=== PATIENT | female | born 1935 | race Caucasian/White ===

== ENCOUNTER 2018-11-21 17:05 | Emergency (ER) | payer MEDICARE, MEDICAID ==
--- NOTE | 2018-11-21 17:51 | RAD ---
AP PELVIS: 11/21/18 HISTORY: Fall with injury to pelvis. There are moderate to severe degenerative changes at the left hip. Prominent hypertrophic changes fro m the femoral head on the left with joint narrowing. No significant degenerative changes at the right hip. The bony pelvis appears intact. The sacrum is obscured by bowel content. 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 No acute fracture identified. POS: [facility]
--- NOTE | 2018-11-21 18:21 | CT ---
CT OF BRAIN PERFORMED WITHOUT CONTRAST ENHANCEMENT: 11/21/18 HISTORY: Head injury status post fall from bed at alf. There is marked ventricular and sulcal prominence. There is no signs of intracerebral hemorrhage or e xtra-axial fluid collections. Mastoid air cells and visualized sinuses are clear. Right sided scalp i njury is seen. IMPRESSION: No acute intracranial abnormalities. POS: [facility]
[2018-11-21 18:22] LABS: Bilirubin Negative (Negative); Blood, Urine Moderate (Negative); Clarity CLOUDY (Clear); Glucose, Urine (Dipstick) Negative (Negative); Leukocyte Trace (Negative); Nitrite Positive (Negative); Protein, Urine (Dipstick) Negative (Neg-Trace); Specific Gravity, Urine 1.019 (1.002-1.036); Urobilinogen 0.2 mg/dL (0.2-1.0); pH, Urine 6.5 (5.0-9.0)
[2018-11-21 18:25] LABS: Bacteria/HPF 4+ HPF (None Seen); Hyaline Casts/LPF 0-3 HYALINE CAST LPF (0-3 Hyaline); Pathc Cast-AUWi Flag 0.13 (0-2.49); RBC/HPF 0-3 HPF (0-3); Squamous Epithelial 0-3 HPF (0-3)
--- NOTE | 2018-11-21 18:26 | CT ---
CT OF CERVICAL SPINE PERFORMED WITHOUT CONTRAST ENHANCEMENT: 11/21/18 HISTORY: Neck pain status post fall in bed. COMPARISON: CT examination of 03/25/17. There is mild disc narrowing at C2-3 with minimal retrolisthesis at this level. There is anterolisthe sis of C4 on C5 and C5 on C6. Changes are related to degenerative facet changes and appears similar t o the previous exam. Disc narrowing is seen at the C5-6 and C6-7 levels. Minimal anterolisthesis of C 7 on T1 is also present. The facets do appear to be in normal alignment. There is no significant janice l stenosis and no CT evidence for fracture. The lung apices are clear. IMPRESSION: No CT evidence of fracture of the cervical spine. Marked arthritic changes present. POS: [facility]
[2018-11-21 18:37] LABS: Renal Epithelial 0-3 HPF (0-3); Transitional Epithelial 0-3 HPF (0-3)
== END 2018-11-21 19:56 ==
LOC: ERS 17:05
DX: N39.0 Urinary tract infection, site not specified (principal); G30.9 Alzheimer's disease, unspecified; F02.80 Dementia in other diseases classified elsewhere, unspecified severity, without behavioral disturbance, psychotic disturbance, mood disturbance, and anxiety; M19.90 Unspecified osteoarthritis, unspecified site; F41.9 Anxiety disorder, unspecified; J44.9 Chronic obstructive pulmonary disease, unspecified; F32.9 Major depressive disorder, single episode, unspecified; Z87.891 Personal history of nicotine dependence; Z79.899 Other long term (current) drug therapy; W06.XXXA Fall from bed, initial encounter
CPT/HCPCS: 51701; 70450; 72125; 72170; 81003; 81015; A4353

== ENCOUNTER 2018-11-27 15:23 | Inpatient (IN) | payer MEDICARE, MEDICAID ==
[2018-11-27] MEDS ORDERED: Acetaminophen 325 MG Suppository ONE ×2 (15:33→15:43)
[2018-11-27 16:12] LABS: Bilirubin Negative (Negative); Blood, Urine Small (Negative); Clarity CLEAR (Clear); Glucose, Urine (Dipstick) Negative (Negative); Leukocyte Trace (Negative); Nitrite Negative (Negative); Protein, Urine (Dipstick) 100 mg/dL (Neg-Trace); Specific Gravity, Urine 1.027 (1.002-1.036); pH, Urine 6.5 (5.0-9.0)
[2018-11-27 16:14] LABS: Bacteria/HPF 1+ HPF (None Seen); Pathc Cast-AUWi Flag 1.49 (0-2.49); RBC/HPF 0-3 HPF (0-3)
[2018-11-27 16:15] LABS: Hemoglobin 12.5 g/dL (12.0-16.0); Mean Corpuscular HGB CONC 32.7 g/dL (32.0-36.0); Mean Corpuscular Hemoglobin 31.5 pg (27.0-31.0); Mean Corpuscular Volume 96.3 fL (78.0-98.0); Mean Platelet Volume 7.6 fL (7.4-10.4); Platelet Count 242 thou/uL (130-400); RBC Distribution Width 11.7 % (11.5-14.5); Red Blood Cell (RBC) Count 3.97 mill/uL (4.20-5.40); White Blood Cell (WBC) Count 15.8 thou/uL (4.8-10.8)
--- NOTE | 2018-11-27 16:19 | CT ---
CT BRAIN NONCONTRAST: 11/27/18 HISTORY: 83-year-old female with Alzheimer's dementia who fell, striking her head. FINDINGS: There is no midline shift or any other mass effect. There is no evidence of acute intracranial hemor rhage, large cortical infarct, obstructive hydrocephalus, or extraaxial fluid collection. The calvar ium is intact. There is diffuse parenchymal volume loss. There are low attenuation areas in the whi te matter. These are nonspecific, but in a patient of this age, they are probably chronic ischemic w danay matter changes due to microvascular atherosclerosis. IMPRESSION: 1) No acute intracranial findings. 2) Severe involutional changes and moderate chronic ischemic white matter changes. 3) Small right frontal superficial scalp contusion, smaller than it was on 11/21/18. carlos manuel barton POS: [facility]
--- NOTE | 2018-11-27 16:25 | RAD ---
FEXAM:Portable chest HISTORY: Patient is status post fall. History of Alzheimer's. COMPARISON: None. FINDINGS:Heart size within normal limits there are atherosclerotic changes of the aorta. The bones ap pear demineralized. No pneumothorax. No rib fractures visualized. IMPRESSION:No active intrathoracic disease.
[2018-11-27 16:27] LABS: Hyaline Casts/LPF 4-6 HYALINE CAST LPF (0-3 Hyaline); Other Casts/LPF 4-6 COARSE GRAN LPF (0-3 Hyaline); Transitional Epithelial 0-3 HPF (0-3)
[2018-11-27 16:28] LABS: ALT (SGPT) 28 U/L (8-55); AST (SGOT) 39 U/L (5-34); Albumin 3.7 g/dL (3.4-4.8); Alkaline Phosphatase 116 U/L (40-150); Anion Gap 16 mmol/L (10-20); BUN (Urea Nitrogen) 31 mg/dL (9.8-20.1); Bilirubin, Total 0.5 mg/dL (0.2-1.2); Calc. Creatinine Clearance 0 mL/min (70-130); Calcium 9.4 mg/dL (7.8-10.44); Carbon Dioxide 24 mmol/L (23-31); Chloride 106 mmol/L (98-107); Estimated GFR-MDRD 63; Globulin 3.1 g/dL (2.4-3.5); Glucose 125 mg/dL (83-110); Potassium 4.4 mmol/L (3.5-5.1); Protein, Total 6.8 g/dL (6.0-8.3); Sodium 142 mmol/L (136-145)
[2018-11-27 16:31] LABS: Band 9 % (5-11); Lymphocytes 6 % (21-51); MDiff Complete? YES; Monocytes 1 % (0-10); Neutrophil 83 % (42-75); Platelet Morphology Comment Appears Adequate; RBC Morphology Normal
[2018-11-27] MEDS ORDERED: Piperacillin/Tazobactam 4.5 GM VIAL ONE (16:55)
--- NOTE | 2018-11-27 18:21 | PDOC.FPRHP ---
- History of Present Illness Chief Complaint: fall History of Present Illness: 83yo F with pmh of dementia and aphasia presents as transfer from [facility] and Outside ER for falls. Pt was reported to have fallen and hit her head. On eval of outside ER head CT showed no acute intracranial process (though it has sever chronic changes). However pt was found to meet sirs criteria with fever of 101 and WBC 15.8. She was given 1L IVF, Vanc, Zosyn and transferred to [place]. Pt is aphasic on exam and as documented on paperwork from [facility] and unable to provide any medical hx. All Hx gained from records review. ED Course: see hpi - Allergies/Adverse Reactions Allergies Allergy/AdvReac Type Severity Reaction Status Date / Time No Known Allergies Allergy Verified 11/27/18 23:28 - Home Medications Medication Instructions Recorded Confirmed Type Donepezil HCl [Aricept] 23 mg PO DAILY 11/27/18 11/27/18 History Loperamide HCl [Loperamide] 2 mg PO ASDIR PRN 11/27/18 11/27/18 History Melatonin 5 mg PO HS 11/27/18 11/27/18 History Meloxicam [Mobic] 7.5 mg PO DAILY 11/27/18 11/27/18 History Memantine HCl [Namenda XR] 28 mg PO DAILY 11/27/18 11/27/18 History diphenhydrAMINE [Benadryl] 25 mg PO Q6HR PRN 11/27/18 11/27/18 History - History PMHx: advanced dementia, aphasia, anxiety PSHx: unknown FHx: unknown Social: unknown - Review of Systems ROS unobtainable: due to mental status - Vital signs BP: 104/66, Pulse: 76, Resp: 18, O2 sat: 99 on Room Air, TMAX 101. Time: 11/27/2018 17:40. - Physical Exam Constitutional: other (not alert, not oriented) HEENT: EOMI, conjunctiva clear, MMM Neck: supple, trachea midline Chest: no-tender to palpation Heart: RRR, normal S1/S2 Lungs: CTAB, no respiratory distress Abdomen: soft, other (mild ttp in LUQ) Musculoskeletal: normal structure, normal tone Neurological: no focal deficit, normal sensation Skin: no rash/lesions, good turgor Heme/Lymphatic: no purpura, no petechia Psychiatric: other (unable to obtain) FMR H&P: Results - Labs Result Diagrams: 11/27/18 15:54 11/27/18 15:54 Lab results: WBC 15.8 thou/uL (4.8-10.8) H 11/27/18 15:54 Hgb 12.5 g/dL (12.0-16.0) 11/27/18 15:54 Hct 38.2 % (36.0-47.0) 11/27/18 15:54 MCV 96.3 fL (78.0-98.0) 11/27/18 15:54 Plt Count 242 thou/uL (130-400) 11/27/18 15:54 Band Neuts % (Manual) 9 % (5-11) 11/27/18 15:54 Sodium 142 mmol/L (136-145) 11/27/18 15:54 Potassium 4.4 mmol/L (3.5-5.1) 11/27/18 15:54 Chloride 106 mmol/L (98-107) 11/27/18 15:54 Carbon Dioxide 24 mmol/L (23-31) 11/27/18 15:54 BUN 31 mg/dL (9.8-20.1) H 11/27/18 15:54 Creatinine 0.86 mg/dL (0.6-1.1) 11/27/18 15:54 Glucose 125 mg/dL (83-110) H 11/27/18 15:54 Lactic Acid 2.5 mmol/L (0.5-2.2) H 11/27/18 15:54 Calcium 9.4 mg/dL (7.8-10.44) 11/27/18 15:54 Total Bilirubin 0.5 mg/dL (0.2-1.2) 11/27/18 15:54 AST 39 U/L (5-34) H 11/27/18 15:54 ALT 28 U/L (8-55) 11/27/18 15:54 Alkaline Phosphatase 116 U/L (40-150) 11/27/18 15:54 Serum Total Protein 6.8 g/dL (6.0-8.3) 11/27/18 15:54 Albumin 3.7 g/dL (3.4-4.8) 11/27/18 15:54 Urine Ketones Negative mg/dL (Negative) 11/27/18 15:40 Urine Blood Small (Negative) H 11/27/18 15:40 Urine Nitrite Negative (Negative) 11/27/18 15:40 Ur Leukocyte Esterase Trace (Negative) H 11/27/18 15:40 Urine RBC 0-3 HPF (0-3) 11/27/18 15:40 Urine WBC 7-10 HPF (0-3) H 11/27/18 15:40 Ur Squamous Epith Cells 4-6 HPF (0-3) H 11/27/18 15:40 Urine Bacteria 1+ HPF (None Seen) H 11/27/18 15:40 FMR H&P: A/P - Problem List (1) Sepsis Current Visit: Yes Status: Acute Code(s): A41.9 - SEPSIS, UNSPECIFIED ORGANISM (2) Aphasia Current Visit: Yes Status: Acute Code(s): R47.01 - APHASIA (3) Anxiety Current Visit: Yes Status: Acute Code(s): F41.9 - ANXIETY DISORDER, UNSPECIFIED - Plan Sepsis A- UA was dirty but showed trace LE. Presumably this could be the source but no obvious source at this point. Skin examination by nursing showed no open wounds. Pt is s/p 1L IVF in outside ER and stable P- Continue Vanc/Zosyn -LR 100/hr -f/u UCx/BCx -flu swab Dementia -hold home meds until diet is given after speech therapy eval aphasia -source unknown though likely dementia CODE: DNAR, spoke with next of kin over the phone. FMR H&P: Upper Level - Pertinent history Lolita Alfaro is an 83 year old female with a history of alzheimer's dementia who presents to the ED with increasing lethargy and decreasing PO intake. Pt being admitted for sepsis likely secondary to urinary tract infection. In ED: received 1L NS, Vanc, Zosyn - Pertinent findings General:Pt is somnolent but arousable. No distress Heart: regular rate and rhythm, no murmurs, rubs, or gallops. Lungs: clear to auscultation bilaterally Extremities: normal bulk and tone; no peripheral edema Skin: no rashes or lesions noted. Tmax: 102.4 WBC: 15.8 CXR: No active intrathoracic disease. Lactate: 2.5 - Plan Date/Time: 11/27/18 1821 I, Cat Giles, have evaluated this patient and agree with findings/plan as outlined by music industry intern resident. Pertinent changes/additions are listed here. Sepsis likely secondary to UTI - will admit to medical unit as an inpatient. Vitals stable. - continue broad spectrum antibiotics. - cultures pending. Will add on flu swab. - trend lactate. Regarding chronic medical problems, will restart home medications as described above. Addendum - Attending - Attending Attestation Date/Time: 11/28/18 0604 I personally evaluated the patient and discussed the management with Dr. Knapp and team. I agree with and repeated the History, Examination, Assessment and Plan documented above with any addition or exceptions noted below. Limited ROS due to baseline dementia. Suspect sepsis 2/2 UTI and will treat as such. Send flu swab, although upper respiratory symptoms do not appear to be prominent.
[2018-11-27] MEDS ORDERED: Acetaminophen 325 MG TAB PO PRN (18:28)
[2018-11-27] MEDS ORDERED: Sodium Chloride 0.9% 1,000 ML IV SCH (18:28)
[2018-11-27] MEDS ORDERED: Ondansetron PF 4 MG/2 ML Vial IVP PRN (18:28)
[2018-11-27] MEDS ORDERED: Ondansetron ODT 4 MG TAB SL PRN (18:28)
[2018-11-27 19:16] VITALS: BMI 17.0
[2018-11-27 20:13] LABS: Lactic Acid 1.5 mmol/L (0.5-2.2)
[2018-11-27] MEDS: Lactated Ringer's 1,000 ML IV SCH (21:51)
[2018-11-27] MEDS: Piperacillin/Tazobactam 3.375 GM in Sodium Chloride 0.9% 100 ML IVPB SCH (21:58)
[2018-11-27] MEDS ORDERED: Piperacillin/Tazobactam 3.375 GM in Sodium Chloride 0.9% 100 ML IVPB SCH (22:00)
[2018-11-28] MEDS: Piperacillin/Tazobactam 3.375 GM in Sodium Chloride 0.9% 100 ML IVPB SCH ×4 (03:05→21:17)
[2018-11-28 06:35] LABS: #Lymphocytes 1.1 thou/uL (1.20-3.40); #Monocytes 0.5 thou/uL (0.11-0.59); #Neutrophils 7.2 thou/uL (1.40-6.50); %Basophils 0.3 % (0.0-1.0); %Eosinophils 0.4 % (0.0-10.0); %Lymphocytes 11.9 % (21.0-51.0); %Monocytes 5.7 % (0.0-10.0); %Neutrophils 81.8 % (42.0-75.0); Hemoglobin 9.9 g/dL (12.0-16.0); Mean Corpuscular HGB CONC 32.6 g/dL (32.0-36.0); Mean Corpuscular Hemoglobin 31.8 pg (27.0-31.0); Mean Corpuscular Volume 97.3 fL (78.0-98.0); Mean Platelet Volume 7.4 fL (7.4-10.4); Platelet Count 201 thou/uL (130-400); RBC Distribution Width 11.4 % (11.5-14.5); White Blood Cell (WBC) Count 8.8 thou/uL (4.8-10.8)
[2018-11-28] MEDS: Lactated Ringer's 1,000 ML IV SCH ×2 (06:43→15:49)
[2018-11-28 06:58] LABS: Anion Gap 10 mmol/L (10-20); BUN (Urea Nitrogen) 27 mg/dL (9.8-20.1); Calc. Creatinine Clearance 38 mL/min (70-130); Calcium 8.5 mg/dL (7.8-10.44); Carbon Dioxide 24 mmol/L (23-31); Chloride 113 mmol/L (98-107); Estimated GFR-MDRD 67; Glucose 82 mg/dL (83-110); Potassium 3.8 mmol/L (3.5-5.1); Sodium 143 mmol/L (136-145)
--- NOTE | 2018-11-28 07:13 | PDOC.FM ---
- Subjective Subjective: pt sleeping comfortably in bed, responds to commands, aphasic at baseline. - Objective Vital Signs & Weight: Vital Signs (12 hours) Temp Pulse Resp BP Pulse Ox 11/28/18 05:23 98.5 F 73 18 118/71 96 11/28/18 00:00 98.2 F 82 18 119/82 96 Weight Weight 47.826 kg I&O: 11/27/18 11/28/18 11/29/18 06:59 06:59 06:59 Intake Total 900 Balance 900 Result Diagrams: 11/28/18 06:00 11/28/18 06:00 Phys Exam - Physical Examination Constitutional: NAD HEENT: moist MMs Neck: full ROM Respiratory: clear to auscultation bilateral Cardiovascular: RRR, no significant murmur Gastrointestinal: no distention Musculoskeletal: no edema Neurological: moves all 4 limbs Psychiatric: normal affect Skin: no rash Dx/Plan (1) Anxiety Code(s): F41.9 - ANXIETY DISORDER, UNSPECIFIED Status: Acute (2) Aphasia Code(s): R47.01 - APHASIA Status: Acute (3) Sepsis Code(s): A41.9 - SEPSIS, UNSPECIFIED ORGANISM Status: Acute - Plan Plan: Sepsis - UA was dirty but showed trace LE. Presumably this could be the source but no obvious source at this point. Skin examination by nursing showed no open wounds. Pt is s/p 1L IVF in outside ER and stable - Continue Vanc/Zosyn, LR 100/hr - UCx/BCx pending - flu swab pending Dementia -hold home meds until diet is given after speech therapy eval aphasia -source unknown though likely dementia CODE: DNAR, spoke with next of kin over the phone. ppx: lovenox dispo: await cx sensitivities, DC on PO abx
[2018-11-28] MEDS: Enoxaparin Sodium 40 MG/0.4 ML SYRINGE SC SCH (08:23)
--- NOTE | 2018-11-28 11:20 | PRG ---
DATE OF SERVICE: 11/28/2018 Ms. Alfaro is an 83-year-old patient with dementia, who was admitted with possible UTI. She is currently on appropriate treatment. Job ID: [id number]
--- NOTE | 2018-11-28 15:26 | PRG ---
DATE OF SERVICE: Ms. Alfaro was also noted to have a fever of 101 and high white count. She did meet SIRS criteria and therefore possible sepsis. She is on broad-spectrum antibiotics with vancomycin and Zosyn, and this will be continued. We have to determine what is the cause of her UTI. Currently, the presumptive diagnosis based on urine culture is Pseudomonas. Job ID: [id number]
[2018-11-28] MEDS ORDERED: Vancomycin HCl 750 MG in Sodium Chloride 0.9% 250 ML 250 ML IVPB SCH (18:00)
[2018-11-29] MEDS: Lactated Ringer's 1,000 ML IV SCH (03:04)
[2018-11-29] MEDS: Piperacillin/Tazobactam 3.375 GM in Sodium Chloride 0.9% 100 ML IVPB SCH (03:05)
[2018-11-29] MEDS ORDERED: Cipro 250 MG TAB PO SCH (06:00)
[2018-11-29 07:14] LABS: #Eosinphils 0.1 thou/uL (0.0-0.7); #Lymphocytes 1.4 thou/uL (1.20-3.40); #Monocytes 0.5 thou/uL (0.11-0.59); #Neutrophils 6.4 thou/uL (1.40-6.50); %Basophils 0.4 % (0.0-1.0); %Eosinophils 0.7 % (0.0-10.0); %Lymphocytes 16.6 % (21.0-51.0); %Monocytes 5.7 % (0.0-10.0); %Neutrophils 76.7 % (42.0-75.0); Hemoglobin 9.5 g/dL (12.0-16.0); Mean Corpuscular HGB CONC 32.6 g/dL (32.0-36.0); Mean Corpuscular Hemoglobin 31.4 pg (27.0-31.0); Mean Corpuscular Volume 96.3 fL (78.0-98.0); Mean Platelet Volume 7.4 fL (7.4-10.4); Platelet Count 212 thou/uL (130-400); RBC Distribution Width 11.3 % (11.5-14.5); Red Blood Cell (RBC) Count 3.03 mill/uL (4.20-5.40); White Blood Cell (WBC) Count 8.3 thou/uL (4.8-10.8)
--- NOTE | 2018-11-29 07:17 | PDOC.FM ---
- Subjective Subjective: pt sleeping comfortably in bed, arouses to stimulation to report she is "trying to sleep". will not answer to further questioning - Objective Vital Signs & Weight: Vital Signs (12 hours) Temp Pulse Resp BP Pulse Ox 11/29/18 06:58 98.6 F 81 18 162/63 H 96 11/29/18 03:10 98.1 F 81 18 144/77 H 96 11/28/18 20:00 95 11/28/18 19:54 97.2 F L 77 18 152/70 H 95 Weight Admit Weight 47.826 kg Weight 47.826 kg I&O: 11/28/18 11/29/18 11/30/18 06:59 06:59 06:59 Intake Total 900 2800 Balance 900 2800 Result Diagrams: 11/29/18 06:36 11/28/18 06:00 Phys Exam - Physical Examination Constitutional: NAD HEENT: moist MMs Neck: full ROM Gastrointestinal: soft, no distention Musculoskeletal: no edema Lymphatic: no nodes Skin: no rash Dx/Plan (1) Anxiety Code(s): F41.9 - ANXIETY DISORDER, UNSPECIFIED Status: Acute (2) Aphasia Code(s): R47.01 - APHASIA Status: Acute (3) Sepsis Code(s): A41.9 - SEPSIS, UNSPECIFIED ORGANISM Status: Acute - Plan Plan: Sepsis - UA was dirty but showed trace LE. Presumably this could be the source but no obvious source at this point. Skin examination by nursing showed no open wounds. Pt is s/p 1L IVF in outside ER and stable - DC Vanc/Zosyn, LR 100/hr - UCx reveals pseudomonas sensitive to cipro- transition to PO - BCx NGTD - flu neg Dementia -cont home meds aphasia, resolved -source unknown though likely dementia CODE: DNAR, spoke with next of kin over the phone. ppx: lovenox dispo: transition to PO cipro, stable for DC Addendum - Attending - Attending Attestation Date/Time: 11/29/181814 I personally evaluated the patient and discussed the management with Dr. Martinez. I agree with the History, Examination, Assessment and Plan documented above with any addition or exceptions noted below. The patient appears back to baseline. She spoke several words to us this morning. Will transition to po antibiotics and discharge to [facility].
[2018-11-29] MEDS ORDERED: diphenhydrAMINE 25 MG CAP PO PRN (07:20)
[2018-11-29] MEDS ORDERED: Non-Formulary Item 1 EACH (Loperamide Hcl [Loperamide] 2 MG) PO PRN (07:20)
[2018-11-29] MEDS ORDERED: Loperamide HCl 2 MG CAP PO PRN (07:25)
[2018-11-29] MEDS: Enoxaparin Sodium 40 MG/0.4 ML SYRINGE SC SCH (08:40)
[2018-11-29] MEDS ORDERED: Non-Formulary Item 1 EACH (Donepezil Hcl [Aricept] 23 MG) PO SCH (09:00)
[2018-11-29] MEDS ORDERED: Non-Formulary Item 1 EACH (Memantine Hcl [Namenda Xr] 28 MG) PO SCH (09:00)
[2018-11-29] MEDS ORDERED: Meloxicam 7.5 MG TAB PO SCH (09:00)
[2018-11-29] MEDS ORDERED: Donepezil Hcl [Aricept] 23 MG PO SCH (09:00)
[2018-11-29 16:19] VITALS: BP 146/68; TEMP 98.1
[2018-11-29] MEDS ORDERED: Non-Formulary Item 1 EACH (Melatonin [Melatonin] 5 MG) PO SCH (21:00)
--- NOTE | 2018-11-30 03:13 | DIS ---
DATE OF ADMISSION: 11/27/2018 DATE OF DISCHARGE: 11/29/2018 ADMITTING ATTENDING: Ernesto Cano MD. RESIDENT: Torsten Martinez DO. CONSULT: None. IMAGING: Brain CT significant for no acute intracranial findings. MEDICATIONS: 1. Melatonin 5 mg p.o. at bedtime. 2. Meloxicam 7.5 mg p.o. daily. 3. Aricept 23 mg p.o. daily. 4. Namenda 28 mg p.o. daily. 5. Benadryl 25 mg p.o. q.6 hours p.r.n. 6. Loperamide 2 mg p.o. as directed p.r.n. 7. Ciprofloxacin 250 mg p.o. b.i.d. for five days. DISCONTINUED MEDICATIONS: None. PRIMARY DIAGNOSIS: Altered mental status secondary to sepsis secondary to urinary tract infection. SECONDARY DIAGNOSES: 1. Dementia. 2. Aphasia, resolved. HISTORY OF PRESENT ILLNESS AND HOSPITAL COURSE: This is an 83-year-old female with a past medical history significant for dementia, presenting as a transfer from [facility] outside ER for falls and altered mental status. In the outside ER, she reported to have a fever of 101, white blood cell count of 15.8, given a L of fluid, vancomycin and Zosyn, and transferred to [facility]. At that time, she was unable to provide any medical history. She was aphasic and reported to be that at baseline from the snf during her hospital stay. That was not the case. She began speaking, although was unable to answer questions appropriately, alert, but oriented x0. The patient's vital signs remained stable. Afebrile, on antibiotics. White blood cell count trended down. Urine culture resulted positive for Pseudomonas, sensitive to ciprofloxacin. The patient was transitioned to p.o. antibiotics successfully. Deemed stable for discharge. Back to snf with p.o. antibiotic course. DISCHARGE INSTRUCTIONS: Location: [facility]. Activity: As tolerated. Diet: Regular. Followup: Follow up with [facility] staff and attending physician there today or the following day. Job ID: [id number]
--- NOTE | 2018-12-04 05:07 | PQF ---
SAP Supervisor Picking Crew Crystal Reports Winform Viewer CONTRERAS LU KATHERINE MD [id number] [id number] CLINICAL DOCUMENTATION CLARIFICATION FORM: POST DISCHARGE Addendum to original discharge summary date: ____ Late entry note date: __ DATE: 12-04-18 ATTN: Sonia Weeks Please exercise your independent, professional judgment in responding to the clarification form. Clinical indicators are provided on the bottom of this form for your review Based on you clinical knowledge can you please specify altered mental status as? Please check appropriate box(s): [ ] AMS due to metabolic encephalopathy from sepsis [ X ] AMS without encephalopathy from sepsis [ ] Other diagnosis, please specify: [ ] Unable to determine For continuity of documentation, please document condition throughout progress notes and discharge summary. Thank You. CLINICAL INDICATORS: -H&P by Dr. Cano 11/27 pg1 presents as transfer from [facility] and outside ER for falls. Pt was reported to have fallen and hit her head -H&P by Dr. Cano 11/27 pg4 aphasia- source unknown though likely dementia -H&P by Dr. Cano 11/27 pg4 83 years old female with a history of alzheimers dementia who presented to the ED with increasing lethargy and decreasing PO intake. -H&P by Dr. Cano 11/27 pg4 Pt is somnolent but arousable -H&P by Dr. Cano 11/27 pg5 Sepsis likely secondary to UTI -DS by Dr. Medrano 11/27 pg1 Altered mental status secondary to sepsis secondary to urinary tract infection -DS by Dr. Medrano 11/27 pg1 Secondary diagnosis 1, Dementia 2. Aphasia- resolved -DS by Dr. Medrano 11/27 pg2 Urine cultured positive for Pseudomonas -Brain CT 11/[address] Rangel Impression: No acute intracranial findings, severe involutional changes and moderate chronic ischemic white matter changes, small right frontal superficial scalp contusion, smaller than it was on 11/21/18 Laboratory 11/27- WBC=15.8 H RISK FACTORS: -Alzheimers dementia- H&P by Dr. Cano 11/27 pg4 -Sepsis secondary to UTI- DS by Dr. Medrano 11/27 pg1 -Fall H&P by Dr. Cano 11/27 TREATMENT: -Brain CT scan- 11/27 by Juan Carlos Correia -Vancomycin Hcl IV 1 grm- OCT 27 -Zosyn 4.5 gm IV OCT 27 -Aricept 23 mg PO daily -OCT 27 -Namenda XR 28 mg PO daily- OCT 27 -Urine culture-Microbiology 11/27 (This form is maintained as a part of the permanent medical record) 2014 [email or web address]. All Rights Reserved [email or web address] [email or web address] [not provided] MTDD
== END 2018-11-29 16:19 | DRG 872 ==
LOC: ERS 15:23 → T4-B 18:25
PROVIDERS: ADMIT Emergency Medicine; ATTEND Emergency Medicine
DX: A41.52 Sepsis due to Pseudomonas (principal); N39.0 Urinary tract infection, site not specified; R47.01 Aphasia; Z66 Do not resuscitate; W18.30XA Fall on same level, unspecified, initial encounter; F41.9 Anxiety disorder, unspecified; G30.9 Alzheimer's disease, unspecified; F02.80 Dementia in other diseases classified elsewhere, unspecified severity, without behavioral disturbance, psychotic disturbance, mood disturbance, and anxiety; J44.9 Chronic obstructive pulmonary disease, unspecified; F32.9 Major depressive disorder, single episode, unspecified; Z87.891 Personal history of nicotine dependence; Z79.1 Long term (current) use of non-steroidal anti-inflammatories (NSAID); Z79.899 Other long term (current) drug therapy; M19.90 Unspecified osteoarthritis, unspecified site
CPT/HCPCS: 36415; 51701; 70450; 71045; 80048; 80053; 81003; 81015; 83605; 85025; 87040; 87077; 87086; 87186; 87804; 96365; 96367; A4353; J1650; J2543; J3370; J7050

== ENCOUNTER 2019-05-01 17:05 | Inpatient (IN) | payer MEDICARE, MEDICAID ==
--- NOTE | 2019-05-01 18:08 | RAD ---
EXAM: 2 views of the right hip HISTORY: Right hip pain COMPARISON: None FINDINGS: 2 views of the right hip shows no evidence of acute fracture or dislocation. No degenerativ e changes are seen. No soft tissue swelling is present. IMPRESSION: No evidence of acute osseous abnormality.
[2019-05-01 18:30] LABS: #Lymphocytes 1.1 thou/uL (1.20-3.40); #Monocytes 0.6 thou/uL (0.11-0.59); #Neutrophils 7.1 thou/uL (1.40-6.50); %Basophils 0.1 % (0.0-1.0); %Eosinophils 0.4 % (0.0-10.0); %Lymphocytes 12.3 % (21.0-51.0); %Monocytes 6.4 % (0.0-10.0); %Neutrophils 80.8 % (42.0-75.0); Hemoglobin 10.7 g/dL (12.0-16.0); Mean Corpuscular HGB CONC 32.8 g/dL (32.0-36.0); Mean Corpuscular Volume 94.5 fL (78.0-98.0); Mean Platelet Volume 8.9 fL (7.4-10.4); Platelet Count 162 thou/uL (130-400); RBC Distribution Width 13.1 % (11.5-14.5); Red Blood Cell (RBC) Count 3.46 mill/uL (4.20-5.40); White Blood Cell (WBC) Count 8.8 thou/uL (4.8-10.8)
[2019-05-01 18:45] LABS: ALT (SGPT) 21 U/L (8-55); AST (SGOT) 24 U/L (5-34); Albumin 2.7 g/dL (3.4-4.8); Alkaline Phosphatase 77 U/L (40-150); Anion Gap 9 mmol/L (10-20); BUN (Urea Nitrogen) 27 mg/dL (9.8-20.1); Bilirubin, Total 0.3 mg/dL (0.2-1.2); CRP (Inflammatory) 4.15 mg/dL (= or < 0.5); Calc. Creatinine Clearance 0 mL/min (70-130); Calcium 7.8 mg/dL (7.8-10.44); Carbon Dioxide 25 mmol/L (23-31); Chloride 125 mmol/L (98-107); Estimated GFR-MDRD 62; Globulin 2.6 g/dL (2.4-3.5); Glucose 142 mg/dL (83-110); Potassium 3.6 mmol/L (3.5-5.1); Protein, Total 5.3 g/dL (6.0-8.3); Sodium 155 mmol/L (136-145)
[2019-05-01 18:50] LABS: Bilirubin Small (Negative); Blood, Urine Negative (Negative); Glucose, Urine (Dipstick) Negative (Negative); Leukocyte Trace (Negative); Nitrite Positive (Negative); Protein, Urine (Dipstick) 100 mg/dL (Neg-Trace)
[2019-05-01 18:51] LABS: Clarity Turbid (Clear)
[2019-05-01 19:00] LABS: Bacteria/HPF 4+ HPF (None Seen); RBC/HPF None Seen HPF (0-3); Squamous Epithelial 0-3 HPF (0-3); Transitional Epithelial 0-3 HPF (None Seen)
[2019-05-01 19:01] LABS: Calcium Oxalate Crystals 2+ HPF (None Seen)
--- NOTE | 2019-05-01 19:01 | PDOC.FPRHP ---
- History of Present Illness Chief Complaint: Altered mental status with fever History of Present Illness: 83 y/o female with PMHx of dementia with non-verbal to confused speech baseline , and Psuedomonas UTI's presents to the ED from [place] from the [facility]. Pt reported to have fever at [place], taken to [facility], then transferred to [facility]. To was given Zosyn at [facility], and IVF's for Sepsis protocol. HR was initially 120's and decreased to 100's when evaluated by me. Lab findings of Na 157, Cr 1.1, Bun 29. Lactate 4.3 . L-hip x-ray: Questionable subcapital fracture of L-femur - Allergies/Adverse Reactions Allergies Allergy/AdvReac Type Severity Reaction Status Date / Time No Known Allergies Allergy Verified 11/27/18 23:28 - Home Medications Medication Instructions Recorded Confirmed Type Donepezil HCl [Aricept] 23 mg PO DAILY 11/27/18 05/02/19 History Loperamide HCl [Loperamide] 2 mg PO ASDIR PRN 11/27/18 05/02/19 History Melatonin 5 mg PO HS 11/27/18 05/02/19 History Meloxicam [Mobic] 7.5 mg PO DAILY 11/27/18 05/02/19 History Memantine HCl [Namenda XR] 28 mg PO DAILY 11/27/18 05/02/19 History diphenhydrAMINE [Benadryl] 25 mg PO Q6HR PRN 11/27/18 05/02/19 History Acetaminophen [Tylenol] 500 mg PO PRN PRN 05/02/19 05/02/19 History Mirtazapine 15 mg PO HS 05/02/19 05/02/19 History - History PMHx: Advanced Dementia, with non-verbal to non-communicable speech. Anxiety, Aphasia. PSHx: unknown FHx: unknown Social: Lives at correction for advanced dementia - Review of Systems ROS unobtainable: due to mental status (Pt non-verbal.) - Vital signs BP: 102/56 HR: 93 RR: 16 Tmax: 99.2 Pox: 97% on RA Wt: 41 kg - Physical Exam Constitutional: other (Pt non-verbal, lying in bed. Chachetic) HEENT: normocephalic and atraumatic, PERRLA (Pinpoint pupils, sluggish reactivity), conjunctiva clear, no scleral icterus, MMM Neck: supple, trachea midline, no LAD, no JVD Heart: RRR, pulses present, no edema -Heart: Blowing holosystolic murmur 11/29 Lungs: CTAB, no respiratory distress, no retractions Abdomen: soft, bowel sounds present, no masses/distention, other (grimace to suprapubic palpation) Musculoskeletal: other (contracted extremities. decreased muscle mass in all major muscle groups) Neurological: other (non-verbal) Skin: no rash/lesions, no jaundice Heme/Lymphatic: no unusual bruising or bleeding, no purpura, no petechia FMR H&P: Results - Labs Result Diagrams: 05/02/19 06:15 05/02/19 06:15 Lab results: WBC 8.8 thou/uL (4.8-10.8) 05/01/19 17:13 Hgb 10.7 g/dL (12.0-16.0) L 05/01/19 17:13 Hct 32.7 % (36.0-47.0) L 05/01/19 17:13 MCV 94.5 fL (78.0-98.0) 05/01/19 17:13 Plt Count 162 thou/uL (130-400) 05/01/19 17:13 Neutrophils % 80.8 % (42.0-75.0) H 05/01/19 17:13 ESR Westergren 26 mm/hr (Less than 30) 05/01/19 17:13 Sodium 155 mmol/L (136-145) H 05/01/19 17:13 Potassium 3.6 mmol/L (3.5-5.1) 05/01/19 17:13 Chloride 125 mmol/L (98-107) H 05/01/19 17:13 Carbon Dioxide 25 mmol/L (23-31) 05/01/19 17:13 BUN 27 mg/dL (9.8-20.1) H 05/01/19 17:13 Creatinine 0.87 mg/dL (0.6-1.1) 05/01/19 17:13 Glucose 142 mg/dL (83-110) H 05/01/19 17:13 Lactic Acid 1.9 mmol/L (0.5-2.2) 05/01/19 17:13 Calcium 7.8 mg/dL (7.8-10.44) 05/01/19 17:13 Total Bilirubin 0.3 mg/dL (0.2-1.2) 05/01/19 17:13 AST 24 U/L (5-34) 05/01/19 17:13 ALT 21 U/L (8-55) 05/01/19 17:13 Alkaline Phosphatase 77 U/L (40-150) 05/01/19 17:13 C-Reactive Protein 4.15 mg/dL (= or < 0.5) H 05/01/19 17:13 Serum Total Protein 5.3 g/dL (6.0-8.3) L 05/01/19 17:13 Albumin 2.7 g/dL (3.4-4.8) L 05/01/19 17:13 Urine Ketones Trace mg/dL (Negative) A 05/01/19 18:30 Urine Blood Negative (Negative) 05/01/19 18:30 Urine Nitrite Positive (Negative) A 05/01/19 18:30 Ur Leukocyte Esterase Trace (Negative) H 05/01/19 18:30 Urine RBC None Seen HPF (0-3) 05/01/19 18:30 Urine WBC 4-6 HPF (0-3) A 05/01/19 18:30 Ur Squamous Epith Cells 0-3 HPF (0-3) 05/01/19 18:30 Urine Bacteria 4+ HPF (None Seen) A 05/01/19 18:30 FMR H&P: A/P - Problem List (1) Sepsis Current Visit: Yes Status: Acute Code(s): A41.9 - SEPSIS, UNSPECIFIED ORGANISM Qualifiers: Sepsis type: sepsis due to unspecified organism Sepsis acute organ dysfunction status: with acute organ dysfunction Severe sepsis acute organ dysfunction type: encephalopathy (2) UTI (urinary tract infection) Current Visit: Yes Status: Acute Qualifiers: Urinary tract infection type: site unspecified (3) Aphasia Current Visit: Yes Status: Acute Code(s): R47.01 - APHASIA (4) Dementia Current Visit: Yes Status: Acute Code(s): F03.90 - UNSPECIFIED DEMENTIA WITHOUT BEHAVIORAL DISTURBANCE Qualifiers: Dementia type: unspecified type (5) Hypernatremia Current Visit: Yes Status: Acute Code(s): E87.0 - HYPEROSMOLALITY AND HYPERNATREMIA - Plan 83 y/o F admitted to inpatient medical for treatment of Sepsis 2/2 UTI. 1. Sepsis - HR 100-120, Temp 102.2 - Secondary to UTI - Bolus IVF in the ED - Zosyn and maintenance IF fluids - Lactate 4.3, will trend - Ordered Procal 2. UTI - Hx of pseudomonas UTI, mathew-sensitive - Zosyn 3.375 Q8H 3. TANYA most likely secondary to dehydration - Cr 1.1, BUN 29 - Continue gentle IVF hydration 4. Hypernatremia - Most likely hypovolemic hypernatremia secondary to dehydration 5. Possible Subcapital Fx of L-Femur - No CT at this time, as pt could not tolerate procedure due to severe musculoskeletal contractions 6. Advanced Dementia - Non-verbal at baseline - Lives in [place] 7. Aphasia - Non-verbal at baseline Code status: DNR Diet: regular diet, mechanical soft, with assistance DVT PPX: Heparin Disposition/LOS: Pt admitted to inpatient medical for anticipated greater than 2 midnights. Stable FMR H&P: Upper Level - Pertinent history 83 yo [place] resident presents due to altered mental status and fever. Patient was found to have urinalysis consistent with UTI at outside facility. Please see internet marketing analyst note above for further information. General: Cachectic female lying in bed, NAD CV: RRR, Holosystolic murmur noted Respiratory: CTA, no wheezing Extremities: extremities contracted, no edema. Skin: Wound vac in place. Psych: Aphasic Neuro: Unable to be tested due to mental status. - Plan Date/Time: 05/01/191900 INoe MD, have evaluated this patient and agree with findings/ plan as outlined by internet marketing analyst resident. Pertinent changes/additions are listed here. 1. UTI - Previous urine culture showed pseudomonas - Will cover with Zosyn 2. Sepsis - Secondary to above - Continue antibiotics 3. Dehydration - Likely due mental state and infection 4. Hypernatremia - Likely secondary to #3 - Recheck BMP 5. Questionable Left femur fracture - Clinically not a surgical candidate - Treat with supportive care PCP: Amaya CODE STATUS: DNAR Disposition: Stable, will admit for further evaluation and management. Addendum - Attending - Attending Attestation Date/Time: 05/01/191911 I personally evaluated the patient and discussed the management with Dr. Robert. I agree with the History, Examination, Assessment and Plan documented above with any addition or exceptions noted below. The patient was sent to the ER for altered mental status and fever. She has advanced dementia and appears to be nonverbal. Pt moans on palpation of suprapubic region. Will place on zosyn. Iv antibiotics. Trend labs.
[2019-05-01] MEDS ORDERED: Lactated Ringer's 1,000 ML IV SCH (20:52)
[2019-05-01] MEDS ORDERED: HYDROcodone/Acetaminophen 5/325 mg Tablet PO PRN ×2 (20:55)
[2019-05-01] MEDS ORDERED: Ondansetron PF 4 MG/2 ML Vial IVP PRN (20:55)
[2019-05-01] MEDS ORDERED: Ondansetron ODT 4 MG TAB SL PRN (20:55)
[2019-05-01] MEDS ORDERED: Sodium Chloride 0.9% 1,000 ML IV SCH (20:55)
[2019-05-01] MEDS ORDERED: Acetaminophen 325 MG TAB PO PRN (20:55)
[2019-05-01 21:34] LABS: Lactic Acid 2.1 mmol/L (0.5-2.2)
[2019-05-01] MEDS: Heparin 5,000 UNITS/ML VIAL SC SCH (22:08)
[2019-05-01] MEDS: Piperacillin/Tazobactam 3.375 GM in Sodium Chloride 0.9% 100 ML IVPB SCH (22:29)
[2019-05-01] MEDS ORDERED: Loperamide HCl 2 MG CAP PO PRN (23:29)
--- NOTE | 2019-05-02 06:45 | PDOC.FM ---
- Subjective Subjective: Pt resting comfortably in bed, still aphasic. No acute events overnight. - Objective Vital Signs & Weight: Vital Signs (12 hours) Temp Pulse Resp BP Pulse Ox 05/02/19 04:48 97.6 F 69 18 93/57 L 93 L 05/02/19 00:43 98.8 F 72 18 92/56 L 100 05/01/19 21:00 99.2 F 82 19 114/77 99 05/01/19 20:52 99 Weight Weight 44 kg I&O: 04/30/19 05/01/19 05/02/19 06:59 06:59 06:59 Intake Total 550 Output Total 300 Balance 250 Result Diagrams: 05/02/19 06:15 05/02/19 06:15 Phys Exam - Physical Examination Constitutional: NAD HEENT: moist MMs Neck: no nodes, no JVD Respiratory: no wheezing, clear to auscultation bilateral Cardiovascular: RRR, no significant murmur Gastrointestinal: soft, no distention Musculoskeletal: no edema, pulses present Deviation from normal: asleep, aphasic Skin: no rash, normal turgor Dx/Plan (1) Aphasia Code(s): R47.01 - APHASIA Status: Acute (2) Dementia Code(s): F03.90 - UNSPECIFIED DEMENTIA WITHOUT BEHAVIORAL DISTURBANCE Status: Acute Qualifiers: Dementia type: unspecified type (3) Hypernatremia Code(s): E87.0 - HYPEROSMOLALITY AND HYPERNATREMIA Status: Acute (4) Sepsis Code(s): A41.9 - SEPSIS, UNSPECIFIED ORGANISM Status: Acute Qualifiers: Sepsis type: sepsis due to unspecified organism Sepsis acute organ dysfunction status: with acute organ dysfunction Severe sepsis acute organ dysfunction type: encephalopathy (5) UTI (urinary tract infection) Status: Acute Qualifiers: Urinary tract infection type: site unspecified (6) Anxiety Code(s): F41.9 - ANXIETY DISORDER, UNSPECIFIED Status: Acute - Plan Plan: Sepsis 2/2 UTI A- Previous urine culture showed pseudomonas. LA downtrended. Procal unimpressive. P- continue Zosyn -continue maintenance IVF -f/u BCx/UCx Dehydration A- Likely due mental state and infection. s/p bolus P- continue IVF until tolerating PO -speech therapy consult when pt more awake Hypernatremia A- Likely secondary to dehydration P- monitor BMP Questionable Left femur fracture A- Clinically not a surgical candidate P- Treat with supportive care CODE STATUS: DNAR Addendum - Attending - Attending Attestation Date/Time: 05/02/19 6374 I personally evaluated the patient and discussed the management with Dr. Knapp. I agree with the History, Examination, Assessment and Plan documented above with any addition or exceptions noted below. Pt is resting comfortably this morning. Will continue antibiotics. Cultures are pending. Changing fluids to D5W due to hypernatremia. Repeat bmp this afternoon. Regarding the possible fracture, will discuss with pt's PCP to see if this fracture is known. I do not think the patient is a candidate for repair as she has advanced dementia and is bed bound, therefor non- weightbearing. Will get additional information. Pt's leg are contracted and CT scan would be difficult.
[2019-05-02 07:28] LABS: #Eosinphils 0.1 thou/uL (0.0-0.7); #Lymphocytes 1.6 thou/uL (1.20-3.40); #Monocytes 0.4 thou/uL (0.11-0.59); #Neutrophils 6.3 thou/uL (1.40-6.50); %Basophils 0.4 % (0.0-1.0); %Eosinophils 0.8 % (0.0-10.0); %Lymphocytes 19.5 % (21.0-51.0); %Monocytes 5.2 % (0.0-10.0); Mean Corpuscular HGB CONC 32.1 g/dL (32.0-36.0); Mean Corpuscular Hemoglobin 30.2 pg (27.0-31.0); Mean Corpuscular Volume 94.1 fL (78.0-98.0); Mean Platelet Volume 9.2 fL (7.4-10.4); Platelet Count 143 thou/uL (130-400); RBC Distribution Width 13.1 % (11.5-14.5); Red Blood Cell (RBC) Count 2.96 mill/uL (4.20-5.40); White Blood Cell (WBC) Count 8.4 thou/uL (4.8-10.8)
[2019-05-02 07:49] LABS: ALT (SGPT) 19 U/L (8-55); AST (SGOT) 19 U/L (5-34); Albumin 2.5 g/dL (3.4-4.8); Alkaline Phosphatase 63 U/L (40-150); Anion Gap 9 mmol/L (10-20); BUN (Urea Nitrogen) 23 mg/dL (9.8-20.1); Bilirubin, Total 0.4 mg/dL (0.2-1.2); Calc. Creatinine Clearance 36 mL/min (70-130); Calcium 7.5 mg/dL (7.8-10.44); Carbon Dioxide 24 mmol/L (23-31); Estimated GFR-MDRD 69; Globulin 2.3 g/dL (2.4-3.5); Glucose 78 mg/dL (83-110); Potassium 3.5 mmol/L (3.5-5.1); Protein, Total 4.8 g/dL (6.0-8.3); Sodium 155 mmol/L (136-145)
[2019-05-02 07:55] LABS: Chloride 126 mmol/L (98-107)
[2019-05-02] MEDS: Heparin 5,000 UNITS/ML VIAL SC SCH ×3 (07:58→20:10)
[2019-05-02] MEDS: Piperacillin/Tazobactam 3.375 GM in Sodium Chloride 0.9% 100 ML IVPB SCH ×3 (07:58→23:28)
[2019-05-02] MEDS ORDERED: Donepezil Hcl [Aricept] 23 MG PO SCH (09:00)
[2019-05-02] MEDS ORDERED: Non-Formulary Item 1 EACH (Memantine Hcl [Namenda Xr] 28 MG) PO SCH (09:00)
[2019-05-02] MEDS ORDERED: Acetaminophen 325 MG Suppository PR PRN (09:10)
[2019-05-02] MEDS: Dextrose 5% in Water 1,000 ML IV SCH ×2 (10:46→23:29)
[2019-05-02 14:45] VITALS: BMI 15.6
[2019-05-02 15:24] LABS: Anion Gap 9 mmol/L (10-20); BUN (Urea Nitrogen) 21 mg/dL (9.8-20.1); Calc. Creatinine Clearance 34 mL/min (70-130); Calcium 7.8 mg/dL (7.8-10.44); Carbon Dioxide 23 mmol/L (23-31); Chloride 124 mmol/L (98-107); Estimated GFR-MDRD 65; Glucose 77 mg/dL (83-110); Potassium 3.3 mmol/L (3.5-5.1); Sodium 153 mmol/L (136-145)
[2019-05-02] MEDS: Melatonin 3 MG TAB PO SCH (20:10)
[2019-05-02] MEDS ORDERED: Prevnar 13-Val Conj/PF 0.5 ML SYRINGE IM ONE (21:00)
[2019-05-02 22:22] LABS: Anion Gap 8 mmol/L (10-20); BUN (Urea Nitrogen) 19 mg/dL (9.8-20.1); Calc. Creatinine Clearance 37 mL/min (70-130); Calcium 7.5 mg/dL (7.8-10.44); Carbon Dioxide 25 mmol/L (23-31); Chloride 120 mmol/L (98-107); Estimated GFR-MDRD 70; Glucose 88 mg/dL (83-110); Sodium 150 mmol/L (136-145)
[2019-05-02 22:26] LABS: Potassium 2.9 mmol/L (3.5-5.1)
[2019-05-02] MEDS ORDERED: Potassium Chloride 20 MEQ TAB PO SCH (23:00)
[2019-05-03] MEDS: Piperacillin/Tazobactam 3.375 GM in Sodium Chloride 0.9% 100 ML IVPB SCH (07:48)
[2019-05-03] MEDS: Heparin 5,000 UNITS/ML VIAL SC SCH ×3 (07:49→23:10)
--- NOTE | 2019-05-03 08:46 | PDOC.FM ---
- Subjective Subjective: Pt is more aware this AM, nursing reports she spoke a few words over night. No acute events. Denies problems or pain. - Objective Vital Signs & Weight: Vital Signs (12 hours) Temp Pulse Resp BP Pulse Ox 05/03/19 08:00 98.1 F 71 14 96/60 99 05/03/19 04:54 98.4 F 68 17 104/60 100 05/03/19 00:00 70 17 96 Weight Admit Weight 43.998 kg Weight 43.998 kg I&O: 05/02/19 05/03/19 05/04/19 06:59 06:59 06:59 Intake Total 550 1000 Output Total 300 535 Balance 250 465 Result Diagrams: 05/03/19 11:30 05/03/19 11:30 Phys Exam - Physical Examination Constitutional: NAD HEENT: moist MMs, sclera anicteric Neck: no JVD, supple Respiratory: no wheezing, clear to auscultation bilateral Cardiovascular: RRR, no significant murmur Gastrointestinal: soft, non-tender Musculoskeletal: no edema, pulses present Psychiatric: normal affect Skin: normal turgor, cap refill <2 seconds Dx/Plan (1) Aphasia Code(s): R47.01 - APHASIA Status: Acute (2) Dementia Code(s): F03.90 - UNSPECIFIED DEMENTIA WITHOUT BEHAVIORAL DISTURBANCE Status: Acute Qualifiers: Dementia type: unspecified type (3) Hypernatremia Code(s): E87.0 - HYPEROSMOLALITY AND HYPERNATREMIA Status: Acute (4) Sepsis Code(s): A41.9 - SEPSIS, UNSPECIFIED ORGANISM Status: Acute Qualifiers: Sepsis type: sepsis due to unspecified organism Sepsis acute organ dysfunction status: with acute organ dysfunction Severe sepsis acute organ dysfunction type: encephalopathy (5) UTI (urinary tract infection) Status: Acute Qualifiers: Urinary tract infection type: site unspecified (6) Anxiety Code(s): F41.9 - ANXIETY DISORDER, UNSPECIFIED Status: Acute - Plan Plan: Sepsis 2/2 UTI A- UCx shows e.coli, mathew sensitive. Pt no longer meeting SIRS criteria. Remains afebrile P- DC Zosyn, start rocephin -f/u BCx Dehydration A- Likely due mental state and infection. s/p bolus P- continue IVF until tolerating PO Hypernatremia A- Likely secondary to dehydration. Slight improvement with D5W P- continue D5W -monitor BMP hypokalemia A- K 2.9 overnight, s/p replacement of 40meq P- recheck BMP this AM -check Mg -replace as needed Anemia A- likely multifactoral and dilutional P- iron studies, Folate, B12 Questionable Left femur fracture A- Clinically not a surgical candidate. Spoke with son who states they desire conservative mgmt and do not want further imaging/evaluation P- Treat with supportive care CODE STATUS: DNAR Addendum - Attending - Attending Attestation Date/Time: 05/03/19 3217 I personally evaluated the patient and discussed the management with Dr. Knapp. I agree with the History, Examination, Assessment and Plan documented above with any addition or exceptions noted below. The patient is speaking a few words this morning. Hypernatremia is improving slowly with D5w, continue to follow bmp. Pt was severely hypokalemic, replacing potassium and rechecking. Changing abx from zosyn to rocephin based on sensitivities. Will try for speech eval today as pt is more awake.
[2019-05-03] MEDS ORDERED: Potassium Chloride 40 MEQ in Premix Bag 1 BAG IVPB SCH (09:00)
[2019-05-03] MEDS: cefTRIAXone\\ROCEPHIN 1 GM in Sodium Chloride 0.9% 100 ML IVPB SCH (09:45)
[2019-05-03] MEDS: Potassium Chloride 20 MEQ in Premix Bag 1 BAG IVPB SCH ×2 (09:46→12:45)
[2019-05-03 11:57] LABS: #Eosinphils 0.3 thou/uL (0.0-0.7); #Lymphocytes 2.3 thou/uL (1.20-3.40); #Monocytes 0.5 thou/uL (0.11-0.59); #Neutrophils 4.5 thou/uL (1.40-6.50); %Basophils 0.3 % (0.0-1.0); %Eosinophils 3.9 % (0.0-10.0); %Lymphocytes 30.2 % (21.0-51.0); %Monocytes 6.5 % (0.0-10.0); %Neutrophils 59.2 % (42.0-75.0); Hemoglobin 10.6 g/dL (12.0-16.0); Mean Corpuscular HGB CONC 32.7 g/dL (32.0-36.0); Mean Corpuscular Hemoglobin 30.4 pg (27.0-31.0); Mean Platelet Volume 9.3 fL (7.4-10.4); Platelet Count 124 thou/uL (130-400); White Blood Cell (WBC) Count 7.7 thou/uL (4.8-10.8)
[2019-05-03 12:09] LABS: Iron 30 ug/dL (50-170); Iron Binding Capacity, Total 146 mcg/dL (265-497)
[2019-05-03 12:10] LABS: Anion Gap 10 mmol/L (10-20); BUN (Urea Nitrogen) 15 mg/dL (9.8-20.1); Calc. Creatinine Clearance 37 mL/min (70-130); Calcium 7.9 mg/dL (7.8-10.44); Carbon Dioxide 23 mmol/L (23-31); Chloride 119 mmol/L (98-107); Estimated GFR-MDRD 70; Glucose 71 mg/dL (83-110); Potassium 3.6 mmol/L (3.5-5.1); Sodium 148 mmol/L (136-145)
[2019-05-03 12:41] LABS: Folate (Folic Acid) 11.1 ng/mL (7.0-31.4)
[2019-05-03] MEDS: Dextrose 5% in Water 1,000 ML IV SCH ×2 (12:48→18:29)
[2019-05-03 16:08] LABS: Anion Gap 10 mmol/L (10-20); BUN (Urea Nitrogen) 14 mg/dL (9.8-20.1); Calc. Creatinine Clearance 38 mL/min (70-130); Calcium 7.7 mg/dL (7.8-10.44); Carbon Dioxide 23 mmol/L (23-31); Chloride 117 mmol/L (98-107); Estimated GFR-MDRD 72; Glucose 75 mg/dL (83-110); Potassium 3.9 mmol/L (3.5-5.1); Sodium 146 mmol/L (136-145)
[2019-05-03] MEDS: Melatonin 3 MG TAB PO SCH (23:10)
[2019-05-04] MEDS: Dextrose 5% in Water 1,000 ML IV SCH ×2 (03:15→10:30)
[2019-05-04 06:30] LABS: #Eosinphils 0.3 thou/uL (0.0-0.7); #Lymphocytes 1.7 thou/uL (1.20-3.40); #Monocytes 0.4 thou/uL (0.11-0.59); %Basophils 0.3 % (0.0-1.0); %Eosinophils 4.2 % (0.0-10.0); %Lymphocytes 27.3 % (21.0-51.0); %Monocytes 5.9 % (0.0-10.0); %Neutrophils 62.3 % (42.0-75.0); Mean Corpuscular HGB CONC 32.8 g/dL (32.0-36.0); Mean Corpuscular Hemoglobin 30.1 pg (27.0-31.0); Mean Corpuscular Volume 91.8 fL (78.0-98.0); Mean Platelet Volume 9.2 fL (7.4-10.4); Platelet Count 132 thou/uL (130-400); RBC Distribution Width 12.5 % (11.5-14.5); Red Blood Cell (RBC) Count 2.99 mill/uL (4.20-5.40); White Blood Cell (WBC) Count 6.4 thou/uL (4.8-10.8)
[2019-05-04 06:42] LABS: Anion Gap 9 mmol/L (10-20); BUN (Urea Nitrogen) 9 mg/dL (9.8-20.1); Calc. Creatinine Clearance 43 mL/min (70-130); Calcium 7.5 mg/dL (7.8-10.44); Carbon Dioxide 22 mmol/L (23-31); Chloride 109 mmol/L (98-107); Estimated GFR-MDRD 85; Glucose 103 mg/dL (83-110); Potassium 3.1 mmol/L (3.5-5.1); Sodium 137 mmol/L (136-145)
[2019-05-04] MEDS ORDERED: Potassium Chloride 40 MEQ in Premix Bag 1 BAG IVPB SCH (08:00)
[2019-05-04] MEDS: Heparin 5,000 UNITS/ML VIAL SC SCH ×3 (08:24→20:23)
[2019-05-04] MEDS: cefTRIAXone\\ROCEPHIN 1 GM in Sodium Chloride 0.9% 100 ML IVPB SCH (08:24)
--- NOTE | 2019-05-04 08:34 | PDOC.FM ---
- Subjective Subjective: Pt more aware than any day since admission. Answering questions with short responses. Denies pain. Denies new problems. - Objective Vital Signs & Weight: Vital Signs (12 hours) Temp Pulse Resp BP Pulse Ox 05/04/19 07:03 98.3 F 74 18 97/56 L 98 Weight Admit Weight 43.998 kg Weight 43.998 kg I&O: 05/03/19 05/04/19 05/05/19 06:59 06:59 06:59 Intake Total 1000 Output Total 535 Balance 465 Result Diagrams: 05/04/19 05:43 05/04/19 05:43 Phys Exam - Physical Examination Constitutional: NAD HEENT: moist MMs, sclera anicteric Neck: no JVD, supple Respiratory: no wheezing, clear to auscultation bilateral Cardiovascular: RRR, no significant murmur Gastrointestinal: soft, non-tender Musculoskeletal: pulses present Psychiatric: normal affect Skin: no rash, normal turgor Dx/Plan (1) Aphasia Code(s): R47.01 - APHASIA Status: Acute (2) Dementia Code(s): F03.90 - UNSPECIFIED DEMENTIA WITHOUT BEHAVIORAL DISTURBANCE Status: Acute Qualifiers: Dementia type: unspecified type (3) Hypernatremia Code(s): E87.0 - HYPEROSMOLALITY AND HYPERNATREMIA Status: Acute (4) Sepsis Code(s): A41.9 - SEPSIS, UNSPECIFIED ORGANISM Status: Acute Qualifiers: Sepsis type: sepsis due to unspecified organism Sepsis acute organ dysfunction status: with acute organ dysfunction Severe sepsis acute organ dysfunction type: encephalopathy (5) UTI (urinary tract infection) Status: Acute Qualifiers: Urinary tract infection type: site unspecified (6) Anxiety Code(s): F41.9 - ANXIETY DISORDER, UNSPECIFIED Status: Acute - Plan Plan: Sepsis 2/2 UTI A- UCx shows e.coli, mathew sensitive. Pt no longer meeting SIRS criteria. Remains afebrile. BCx show NG at 48hrs P- continue rocephin -monitor vitals Dehydration A- Likely due mental state and infection. s/p bolus P- continue IVF until tolerating PO Hypernatremia A- resolved P- switch from D5W to LR today -monitor BMP hypokalemia A- K 2.9 --> 3.1, Mg wnl P- start PO diet when tolerating -replace as needed Anemia of chronic disease A- iron studies consistent with anemia of chronic disease P- monitor Hgb Dysphagia A- Speech Therapy recommended pt not safe for PO intake on initial eval. She has since become more alert P- will await Speech therapy recommendations, possibly advance diet to puree Left femur fracture A- Clinically not a surgical candidate. Spoke with son who states they desire conservative mgmt and do not want further imaging/evaluation P- Treat with supportive care CODE STATUS: DNAR Addendum - Attending - Attending Attestation Date/Time: 05/04/19 1055 I personally evaluated the patient and discussed the management with Dr. Knapp. I agree with the History, Examination, Assessment and Plan documented above with any addition or exceptions noted below. we are working with family to arrange proper palliative and/or hospice care.
[2019-05-04] MEDS: Potassium Chloride 20 MEQ in Premix Bag 1 BAG IVPB SCH ×2 (10:31→13:19)
[2019-05-04] MEDS: Lactated Ringer's 1,000 ML IV SCH (10:31)
[2019-05-04] MEDS ORDERED: Potassium Chloride 20 MEQ TAB PO SCH (17:15)
[2019-05-04] MEDS: Melatonin 3 MG TAB PO SCH (20:23)
[2019-05-05] MEDS: Lactated Ringer's 1,000 ML IV SCH ×2 (00:46→12:51)
[2019-05-05 04:24] LABS: #Eosinphils 0.1 thou/uL (0.0-0.7); #Lymphocytes 1.4 thou/uL (1.20-3.40); #Monocytes 0.4 thou/uL (0.11-0.59); #Neutrophils 3.7 thou/uL (1.40-6.50); %Basophils 0.7 % (0.0-1.0); %Eosinophils 1.3 % (0.0-10.0); %Lymphocytes 24.6 % (21.0-51.0); %Monocytes 6.5 % (0.0-10.0); %Neutrophils 66.9 % (42.0-75.0); Hemoglobin 11.3 g/dL (12.0-16.0); Mean Corpuscular HGB CONC 33.1 g/dL (32.0-36.0); Mean Corpuscular Hemoglobin 30.3 pg (27.0-31.0); Mean Corpuscular Volume 91.5 fL (78.0-98.0); Mean Platelet Volume 9.4 fL (7.4-10.4); Platelet Count 157 thou/uL (130-400); RBC Distribution Width 12.6 % (11.5-14.5); Red Blood Cell (RBC) Count 3.73 mill/uL (4.20-5.40); White Blood Cell (WBC) Count 5.6 thou/uL (4.8-10.8)
[2019-05-05 04:39] LABS: Anion Gap 12 mmol/L (10-20); BUN (Urea Nitrogen) 4 mg/dL (9.8-20.1); Calc. Creatinine Clearance 39 mL/min (70-130); Calcium 8.5 mg/dL (7.8-10.44); Carbon Dioxide 18 mmol/L (23-31); Chloride 111 mmol/L (98-107); Estimated GFR-MDRD 76; Glucose 80 mg/dL (83-110); Potassium 4.4 mmol/L (3.5-5.1); Sodium 137 mmol/L (136-145)
--- NOTE | 2019-05-05 07:51 | PDOC.FM ---
- Subjective Subjective: Pt resting comfortably, answering questions with yes and no. Spoke with family yesterday and they wish to have pt enrolled with hospice. No acute events overnight. - Objective MAR Reviewed: Yes Vital Signs & Weight: Vital Signs (12 hours) Temp Pulse Resp BP Pulse Ox 05/05/19 07:00 98.7 F 88 19 114/51 L 92 L 05/04/19 20:14 98 05/04/19 20:00 97.7 F 88 18 126/73 100 Weight Admit Weight 43.998 kg Weight 43.998 kg Result Diagrams: 05/05/19 04:06 05/05/19 04:06 Phys Exam - Physical Examination Constitutional: NAD HEENT: moist MMs, sclera anicteric Neck: no nodes, supple Respiratory: no wheezing, clear to auscultation bilateral Cardiovascular: RRR, no significant murmur Gastrointestinal: soft, no distention Musculoskeletal: pulses present Psychiatric: normal affect Skin: no rash, normal turgor Dx/Plan (1) Aphasia Code(s): R47.01 - APHASIA Status: Acute (2) Dementia Code(s): F03.90 - UNSPECIFIED DEMENTIA WITHOUT BEHAVIORAL DISTURBANCE Status: Acute Qualifiers: Dementia type: unspecified type (3) Hypernatremia Code(s): E87.0 - HYPEROSMOLALITY AND HYPERNATREMIA Status: Acute (4) Sepsis Code(s): A41.9 - SEPSIS, UNSPECIFIED ORGANISM Status: Acute Qualifiers: Sepsis type: sepsis due to unspecified organism Sepsis acute organ dysfunction status: with acute organ dysfunction Severe sepsis acute organ dysfunction type: encephalopathy (5) UTI (urinary tract infection) Status: Acute Qualifiers: Urinary tract infection type: site unspecified (6) Anxiety Code(s): F41.9 - ANXIETY DISORDER, UNSPECIFIED Status: Acute - Plan Plan: Sepsis 2/2 UTI, resolved A- UCx shows e.coli, mathew sensitive. Pt no longer meeting SIRS criteria. Remains afebrile. BCx show NG at 48hrs. Completed course of Zosyn and rocephin P-monitor vitals Dehydration A- Likely due mental state and infection. s/p bolus P- continue IVF until DC Hypernatremia A- resolved P- continue LR -monitor BMP hypokalemia A- resolved P-replace as needed Anemia of chronic disease A- iron studies consistent with anemia of chronic disease P- monitor Hgb Dysphagia A- Speech Therapy recommended nectar thick and puree on re-eval. Family is comfortable with aspiration risks as discussed on phone. P- diet as above Left femur fracture A- Clinically not a surgical candidate. Spoke with son who states they desire conservative mgmt and do not want further imaging/evaluation P- Treat with supportive care Dispo: stable for DC. Will touch base to see if hospice has been arranged inpt vs outpt CODE STATUS: DNAR Addendum - Attending - Attending Attestation Date/Time: 05/05/19 6145 I personally evaluated the patient and discussed the management with Dr. Knapp I agree with the History, Examination, Assessment and Plan documented above with any addition or exceptions noted below. 83 yo female with advanced dementia transferred from [place] with sepsis UTI(hx Pseudomonas,E. Coli this admit) and electrolyte disturbance. Patient bedridden and dysphagia noted left femur fracture. 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 Patient has reached maximum inpat benefit, family counseled extensively and aware of patients condition agreed to pureed diet with known aspiration risk decline PEG etc.
[2019-05-05] MEDS: Heparin 5,000 UNITS/ML VIAL SC SCH ×2 (08:11→16:23)
[2019-05-05 12:37] VITALS: TEMP 98.4
[2019-05-05 15:31] VITALS: BP 118/73
--- NOTE | 2019-05-05 23:14 | DIS ---
DATE OF ADMISSION: 05/01/2019 DATE OF DISCHARGE: 05/05/2019 ADMITTING ATTENDING: Sonia Medrano MD CONSULTS: None. PROCEDURES PERFORMED: 1. On 05/01/2019, hip x-ray. Impression, no evidence of acute osseous abnormality on right hip. 2. On 05/01/2019, hip x-ray. Impression, findings are degenerative changes in the left hip joint. There is a question of a subcapital fracture involving the left femur. Further evaluation of CT scan is recommended. 3. On 05/01/2019, chest x-ray. Impression, heart size is normal. The lungs are well expanded without focal consolidation, pneumothorax or pleural effusion. There is mild prominence of pulmonary vascularity. DISCHARGE MEDICATIONS: 1. Melatonin 5 mg p.o. at bedtime. 2. Meloxicam 7.5 mg p.o. daily. 3. Donepezil 23 mg p.o. daily. 4. Memantine 28 mg p.o. daily. 5. Benadryl 25 mg q.6 hours p.r.n. 6. Loperamide 2 mg p.o. p.r.n. 7. Acetaminophen 500 mg p.o. p.r.n. 8. Mirtazapine 15 mg p.o. at bedtime. DISCONTINUED MEDICATIONS: None. PRIMARY DIAGNOSIS: Sepsis, secondary to urinary tract infection. SECONDARY DIAGNOSES: Hypernatremia, hypokalemia, hypocalcemia, anemia of chronic disease, dysphagia, left femur fracture. HISTORY OF PRESENT ILLNESS/HOSPITAL COURSE: This is an 83-year-old female, who [facility] the [facility] for altered mental status and was found to be septic secondary to UTI. The patient was admitted and treated with Zosyn initially because the patient had history of Pseudomonas UTI. Urine cultures eventually resulted as E coli that was mathew sensitive. The patient was switched to Rocephin. The patient received four days of IV antibiotics in total and was no longer meeting SIRS criteria, being afebrile since admission. Additionally, hospital stay was complicated by hypernatremia of 155 on admission. It was thought this was secondary to poor p.o. intake and so, the patient was initially started on D5 water and was eventually transitioned to lactated Ringer's. Additionally, hospital stay was complicated by hypokalemia and hypocalcemia, which were corrected. Regarding the patient's left femur fracture, the patient had had some falls at [facility] prior to admission. Family was contacted and stated that the patient would end up with desired further workup or evaluation of these said fracture. Consult Palliative Care was administered with pain control. Additionally, hospice was initiated prior to discharge per family request. Pt is bedridden 2/2 advanced dementia and femur fracture. Speech Therapy was also on board who recommended a puree nectar thick diet. The patient's family was aware of the risks of aspiration and decided to opt for comfort feeds with no PEG tube placement seen as the patient was being evaluated for hospice. DISPOSITION: Stable. DISCHARGE INSTRUCTIONS: 1. Location: senior care. 2. Diet: [place] thick and puree. 3. Activity: The patient is bedridden by femur fracture. 4. Followup: Followup with PCP in 7 days. Job ID: [id number]
== END 2019-05-05 17:28 | DRG 871 ==
LOC: ERS 17:05 → T4-A 20:51
PROVIDERS: ADMIT Family Medicine; ATTEND Family Medicine
DX: A41.51 Sepsis due to Escherichia coli [E. coli] (principal); S72.012A Unspecified intracapsular fracture of left femur, initial encounter for closed fracture; G93.41 Metabolic encephalopathy; N03.9 Chronic nephritic syndrome with unspecified morphologic changes; E87.0 Hyperosmolality and hypernatremia; R47.01 Aphasia; R65.20 Severe sepsis without septic shock; E83.51 Hypocalcemia; D63.8 Anemia in other chronic diseases classified elsewhere; R13.10 Dysphagia, unspecified; F03.90 Unspecified dementia, unspecified severity, without behavioral disturbance, psychotic disturbance, mood disturbance, and anxiety; E86.0 Dehydration; R29.6 Repeated falls; W19.XXXA Unspecified fall, initial encounter; E87.6 Hypokalemia; Z79.1 Long term (current) use of non-steroidal anti-inflammatories (NSAID); Z79.899 Other long term (current) drug therapy; Z74.01 Bed confinement status
CPT/HCPCS: 36415; 51702; 80048; 80053; 81003; 81015; 82607; 82728; 82746; 83540; 83550; 83605; 83735; 84145; 85025; 85652; 86140; J0696; J1644; J2543; J3475; J3480; J3490